=== PATIENT | male | born 1960 | race Caucasian/White ===

== ENCOUNTER 2017-03-09 08:11 | Emergency (ER) | payer OTHER ==
[~2017-03-09] VITALS: Ht 182.9 cm; Wt 116.0 kg
[2017-03-09 08:14] VITALS: BP 152/90
[2017-03-09] MEDS ORDERED: HYDROcodone/APAP 5/325 TABLET ONE (09:05)
[2017-03-09] MEDS ORDERED: HYDROcodone/APAP 5/325 TABLET PO PRN (09:30)
== END 2017-03-09 10:27 | disposition home or self-care (01) ==
LOC: ED 10:04
DX: S43.421A Sprain of right rotator cuff capsule, initial encounter (principal); K22.70 Barrett's esophagus without dysplasia; X50.9XXA Other and unspecified overexertion or strenuous movements or postures, initial encounter; Y93.89 Activity, other specified; Y92.89 Other specified places as the place of occurrence of the external cause; Y99.8 Other external cause status
CPT/HCPCS: 99284